=== PATIENT | female | born 1990 | race Caucasian/White ===

== ENCOUNTER 2016-10-03 19:01 | Emergency (ER) | payer OTHER ==
[2016-10-03 22:12] LABS: RED BLOOD COUNT 4.86 M/UL (4.00-5.10); WHITE BLOOD COUNT 13.8 K/UL (4.5-11.0)
[2016-10-03 22:28] LABS: BUN/CREATININE RATIO 13 (0-10)
== END 2016-10-03 23:19 | disposition home or self-care (01) ==
LOC: ER1 19:01
PROVIDERS: Family Medicine
DX: N39.0 Urinary tract infection, site not specified (principal); R31.9 Hematuria, unspecified; F17.200 Nicotine dependence, unspecified, uncomplicated; Z88.0 Allergy status to penicillin; Z88.2 Allergy status to sulfonamides; Z88.5 Allergy status to narcotic agent
CPT/HCPCS: 36415; 80053; 81001; 84703; 85025; 85610; 85730; 87077; 87086; 87186; 96374; 99283; J0696